=== PATIENT | female | born 1975 | race Caucasian/White ===

== ENCOUNTER 2025-02-23 21:07 | Emergency (ER) | payer BC, MEDICAID ==
[~2025-02-23] VITALS: Ht 167.6 cm; Wt 100.7 kg
[2025-02-23] MEDS ORDERED: diphenhydrAMINE HCL 50 MG/ML VIAL ONE (21:51)
[2025-02-23] MEDS ORDERED: methylPREDNISolone SOD SUCC 125 MG/2ML VIAL ONE (21:51)
[2025-02-23] MEDS ORDERED: FAMOTIDINE/PF INJ 20 MG/2 ML VIAL IV ONE (21:52)
[2025-02-23] MEDS: FAMOTIDINE/PF INJ 20 MG/2 ML VIAL IV ONE (21:59)
[2025-02-23] MEDS: diphenhydrAMINE HCL 50 MG/ML VIAL IV ONE (21:59)
[2025-02-23] MEDS: methylPREDNISolone SOD SUCC 125 MG/2ML VIAL IV ONE (22:00)
[2025-02-23] MEDS ORDERED: EPIN0.3P3 IM (22:46)
[2025-02-23] MEDS ORDERED: FAMO-131 PO (22:46)
[2025-02-23] MEDS ORDERED: PRED20TA PO (22:46)
[2025-02-23 22:58] VITALS: BP 130/85; TEMP 98.3; O2SAT 98
== END 2025-02-23 22:59 | disposition home or self-care (01) ==
LOC: ER 21:09
DX: T78.1XXA Other adverse food reactions, not elsewhere classified, initial encounter (principal); L50.9 Urticaria, unspecified; F25.9 Schizoaffective disorder, unspecified; F31.9 Bipolar disorder, unspecified; Z88.2 Allergy status to sulfonamides; X58.XXXA Exposure to other specified factors, initial encounter
CPT/HCPCS: 99284; 96374; 96375; J2919; J1200; J1308